=== PATIENT | male | born 1935 | race Caucasian/White ===

== ENCOUNTER 2019-06-03 08:31 | Emergency (ER) | payer OTHER ==
--- NOTE | 2019-06-03 08:39 | EDM.PDOC ---
ED HPI GENERAL MEDICAL PROBLEM - General Stated Complaint: SHOULDER POPPED OUT OF PLACE Time Seen by Provider: 06/03/19 08:34 Source of Information: Reports: Patient History Limitations: Reports: No Limitations - History of Present Illness INITIAL COMMENTS - FREE TEXT/NARRATIVE: Patient is an 83-year-old male while stretching this morning felt his left shoulder pop out of place. Patient has decreased range of motion of the shoulder since. States he had a similar dislocation of the same shoulder 2 weeks ago was reduced in emergency department out of town. For that he has not had similar symptoms. He was stented shoulder immobilizer 2 weeks ago but is not currently wearing one. He denies any other complaints other than severe pain. 2 weeks ago patient injured himself when he fell off a ladder. Onset: Today Location: Reports: Upper Extremity, Left Quality: Reports: Ache Severity: Mild Improves with: Reports: Immobilization Worsens with: Reports: Movement Context: Reports: Activity Associated Symptoms: Reports: No Other Symptoms L shoulder Pain Score (Numeric/FACES): 10 - Related Data Allergies Allergy/AdvReac Type Severity Reaction Status Date / Time No Known Allergies Allergy Verified 06/03/19 08:48 Review of Systems - Review of Systems Review Of Systems: See Below Constitutional: Reports: No Symptoms Mouth/Throat: Reports: No Symptoms Respiratory: Reports: No Symptoms Cardiovascular: Reports: No Symptoms GI/Abdominal: Reports: No Symptoms Genitourinary: Reports: No Symptoms Musculoskeletal: Reports: Shoulder Pain Skin: Reports: No Symptoms Neurological: Reports: No Symptoms Psychiatric: Reports: No Symptoms ED EXAM, GENERAL - Physical Exam Exam: See Below Exam Limited By: No Limitations General Appearance: Alert, No Apparent Distress Head: Atraumatic, Normocephalic Neck: Normal Inspection, Supple, Non-Tender Respiratory/Chest: No Respiratory Distress Cardiovascular: No Edema, No JVD GI/Abdominal: Normal Bowel Sounds, Soft, Non-Tender Back Exam: Normal Inspection Extremities: No Pedal Edema, Arm Pain Neurological: Alert, Oriented, Normal Cognition Psychiatric: Normal Affect Skin Exam: Warm, Dry ED TRAUMA EXTREMITY PROCEDURES - Joint Reduction Site: Shoulder (L) Sedation: Conscious Sedation Pre-Procedure NV Status: Normal Post-Procedure NV Status: Normal Technique: Traction/Counter Traction Number of Attempts: 1 Post-Reduction Imaging: Completely Reduced Joint Reduction Complications: No Progress/Comments: Patient had been 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 Anesthesia provided conscious sedation. Patient received 70 mL's of propofol. Patient was easily reduced as shown on postreduction films. He has been placed in a shoulder immobilizer. He was discussed with Dr. Crowder who is orthopedic provider who was not concerned with the prior Hill-Sachs fracture the patient immobilized for 3 weeks. Course - Vital Signs Last Recorded V/S: Last Vital Signs Temp 36.7 C 06/03/19 08:41 Pulse 61 06/03/19 08:41 Resp 20 06/03/19 08:41 BP 162/110 H 06/03/19 08:41 Pulse Ox 98 06/03/19 08:41 - Orders/Labs/Meds Orders: Active Orders 24 hr Category Date Time Status Shoulder Comp Lt [CR] Stat Exams 06/03/19 09:54 Ordered Sodium Chloride 0.9% [Saline Flush] Med 06/03/19 08:42 Active 10 ml FLUSH ASDIRECTED PRN Sodium Chloride 0.9% [Saline Flush] Med 06/03/19 08:42 Active 2.5 ml FLUSH ASDIRECTED PRN DME for Discharge [COMM] Stat Oth 06/03/19 09:59 Ordered Saline Lock Insert [OM.PC] Stat Oth 06/03/19 08:42 Ordered Medication Orders Sodium Chloride (Saline Flush) 10 ml FLUSH ASDIRECTED PRN PRN Reason: Keep Vein Open Sodium Chloride (Saline Flush) 2.5 ml FLUSH ASDIRECTED PRN PRN Reason: Keep Vein Open Meds: Medications Generic Name Dose Route Start Last Admin Trade Name Freq PRN Reason Stop Dose Admin Sodium Chloride 10 ml 06/03/19 08:42 Saline Flush FLUSH ASDIRECTED PRN Keep Vein Open Sodium Chloride 2.5 ml 06/03/19 08:42 Saline Flush FLUSH ASDIRECTED PRN Keep Vein Open Discontinued Medications Generic Name Dose Route Start Last Admin Trade Name Freq PRN Reason Stop Dose Admin Fentanyl 25 mcg 06/03/19 08:48 06/03/19 08:54 Fentanyl IVPUSH 06/03/19 08:49 Not Given ONETIME ONE Fentanyl Confirm 06/03/19 08:46 06/03/19 08:53 Sublimaze Administered 06/03/19 08:47 Not Given Dose 100 mcg .ROUTE .STK-MED ONE Fentanyl 25 mcg 06/03/19 08:54 06/03/19 08:55 Sublimaze IVPUSH 06/03/19 08:55 25 mcg STAT ONE Administration Fentanyl 25 mcg 06/03/19 09:10 06/03/19 09:24 Sublimaze IVPUSH 06/03/19 09:11 25 mcg NOW STA Administration Fentanyl Confirm 06/03/19 09:42 Sublimaze Administered 06/03/19 09:43 Dose 100 mcg .ROUTE .STK-MED ONE Lidocaine HCl Confirm 06/03/19 09:39 Xylocaine-Mpf 1% Administered 06/03/19 09:40 Dose 5 ml .ROUTE .STK-MED ONE Lorazepam 0.5 mg 06/03/19 08:48 06/03/19 08:51 Ativan IVPUSH 06/03/19 08:49 0.5 mg ONETIME ONE Administration Lorazepam Confirm 06/03/19 08:47 06/03/19 09:00 Ativan Administered 06/03/19 08:48 Not Given Dose 2 mg .ROUTE .STK-MED ONE Propofol Confirm 06/03/19 09:39 Diprivan 20 Ml Administered 06/03/19 09:40 Dose 200 mg .ROUTE .STK-MED ONE Sodium Chloride 2.5 ml 06/03/19 08:40 06/03/19 09:00 Saline Flush FLUSH 06/03/19 08:41 Not Given ONETIME ONE - Re-Assessments/Exams Free Text/Narrative Re-Assessment/Exam: 06/03/19 10:02 Dr. Crowder orthopedic provider had reviewed initial x-rays I was not concerned about patient's prior Hill-Sachs deformity is requested that I reduce the shoulder. Anesthesia is present and provided conscious sedation. Patient was easily reduced without any complications. Post reductions show shoulder is in place. Been placed in shoulder immobilizer. Departure - Departure Time of Disposition: 10:07 Disposition: Home, Self-Care 01 Condition: Good Clinical Impression: Shoulder dislocation, recurrent, Hill Sachs deformity, left - Discharge Information Instructions: Posterior Shoulder Instability Referrals: Geeta MURILLO [Primary Care Provider] - Forms: ED Department Discharge Additional Instructions: The following information is given to patients seen in the emergency department who are being discharged to home. This information is to outline your options for follow-up care. We provide all patients seen in our emergency department with a follow-up referral. The need for follow-up, as well as the timing and circumstances, are variable depending upon the specifics of your emergency department visit. If you don't have a primary care physician on staff, we will provide you with a referral. We always advise you to contact your personal physician following an emergency department visit to inform them of the circumstance of the visit and for follow-up with them and/or the need for any referrals to a consulting specialist. The emergency department will also refer you to a specialist when appropriate. This referral assures that you have the opportunity for follow-up care with a specialist. All of these measure are taken in an effort to provide you with optimal care, which includes your follow-up. Under all circumstances we always encourage you to contact your private physician who remains a resource for coordinating your care. When calling for follow-up care, please make the office aware that this follow-up is from your recent emergency room visit. If for any reason you are refused follow-up, please contact the [facility] Emergency Department at and asked to speak to the emergency department charge nurse. Care Plan Goals: Pain in shoulder immobilizer for the next 3 weeks. Follow-up with orthopedic provider at 3 weeks. Return to ER if worse. Ibuprofen with meals as needed. Ice if swelling the shoulder area. Sepsis Event Note - Focused Exam Vital Signs: Vital Signs Temp Pulse Resp BP Pulse Ox 06/03/19 08:41 36.7 C 61 20 162/110 H 98 Date Exam was Performed: 06/03/19 Time Exam was Performed: 10:00 - My Orders Last 24 Hours: My Active Orders 06/03/19 08:42 Sodium Chloride 0.9% [Saline Flush] 10 ml FLUSH ASDIRECTED PRN Sodium Chloride 0.9% [Saline Flush] 2.5 ml FLUSH ASDIRECTED PRN Saline Lock Insert [OM.PC] Stat 06/03/19 09:54 Shoulder Comp Lt [CR] Stat 06/03/19 09:59 DME for Discharge [COMM] Stat - Assessment/Plan Last 24 Hours: My Active Orders 06/03/19 08:42 Sodium Chloride 0.9% [Saline Flush] 10 ml FLUSH ASDIRECTED PRN Sodium Chloride 0.9% [Saline Flush] 2.5 ml FLUSH ASDIRECTED PRN Saline Lock Insert [OM.PC] Stat 06/03/19 09:54 Shoulder Comp Lt [CR] Stat 06/03/19 09:59 DME for Discharge [COMM] Stat
[2019-06-03] MEDS ORDERED: Sodium Chloride 0.9% 2.5 ML Syringe FLUSH ONE (08:40)
[2019-06-03] MEDS ORDERED: Sodium Chloride 0.9% 10 ML Syringe FLUSH PRN (08:42)
[2019-06-03] MEDS ORDERED: Sodium Chloride 0.9% 2.5 ML Syringe FLUSH PRN (08:42)
[2019-06-03] MEDS ORDERED: LORazepam 2 MG/ML SDV ONE (08:47)
[2019-06-03] MEDS ORDERED: LORazepam 2 MG/ML SDV IVPUSH ONE (08:48)
[2019-06-03] MEDS ORDERED: fentaNYL 50 MCG/ML SDV IVPUSH ONE (08:48)
[2019-06-03] MEDS: fentaNYL 100 MCG/2 ML SDV ONE ×2 (08:51→08:53)
[2019-06-03] MEDS ORDERED: fentaNYL 100 MCG/2 ML SDV IVPUSH ONE (08:54)
[2019-06-03] MEDS ORDERED: fentaNYL 100 MCG/2 ML SDV IVPUSH STA ×2 (09:10→11:42)
--- NOTE | 2019-06-03 09:16 | CR ---
INDICATION: Dislocation. TECHNIQUE: Two views of the left shoulder. FINDINGS: Acute complete anteroinferior left shoulder dislocation. There is a Hill-Sachs fracture deformity along the superior lateral margin of the humeral head. Probable soft tissue swelling. Degenerative change of the AC joint. IMPRESSION: Acute complete anteroinferior left shoulder dislocation. Hill-Sachs deformity superior lateral left humeral head. Dictated by Tremaine Landaverde MD @ Jun 03 2019 9:14AM Signed by Dr. Tremaine Landaverde @ Jun 03 2019 9:16AM
[2019-06-03] MEDS ORDERED: Propofol 200 MG/20 ML SDV ONE (09:39)
[2019-06-03] MEDS ORDERED: fentaNYL 100 MCG/2 ML SDV ONE (09:42)
--- NOTE | 2019-06-03 10:01 | PCM.PREANE ---
Preanesthetic Assessment - Anesthesia/Transfusion/Family Hx Anesthesia History: Prior Anesthesia Without Reaction Family History of Anesthesia Reaction: No Transfusion History: No Prior Transfusion(s) Intubation History: Unknown - Review of Systems General: No Symptoms Pulmonary: No Symptoms Cardiovascular: No Symptoms Gastrointestinal: No Symptoms Neurological: No Symptoms Other: Reports: None - Physical Assessment Vital Signs: Last Vital Signs Temp 98.0 F 06/03/19 08:41 Pulse 61 06/03/19 08:41 Resp 20 06/03/19 08:41 BP 162/110 H 06/03/19 08:41 Pulse Ox 98 06/03/19 08:41 ASA Class: 2E Mental Status: Alert & Oriented x3 Airway Class: Mallampati = 2 Dentition: Reports: Normal Dentition Thyro-Mental Finger Breadths: 3 Mouth Opening Finger Breadths: 3 ROM/Head Extension: Limited/Partial Lungs: Clear to Auscultation, Normal Respiratory Effort Cardiovascular: Regular Rate, Regular Rhythm - Allergies Allergies/Adverse Reactions: Allergies Allergy/AdvReac Type Severity Reaction Status Date / Time No Known Allergies Allergy Verified 06/03/19 08:48 - Acknowledgements Anesthesia Type Planned: MAC Pt an Appropriate Candidate for the Planned Anesthesia: Yes Alternatives and Risks of Anesthesia Discussed w Pt/Guardian: Yes Pt/Guardian Understands and Agrees with Anesthesia Plan: Yes PreAnesthesia Questionnaire HEENT History: Reports: Hard of Hearing Cardiovascular History: Reports: Hypertension Respiratory History: Reports: None Gastrointestinal History: Reports: None Genitourinary History: Reports: None Musculoskeletal History: Reports: Gout, Other (See Below) (History of Spontaneous Left Shoulder dislocation) Neurological History: Reports: None Psychiatric History: Reports: None Endocrine/Metabolic History: Reports: None Hematologic History: Reports: None Immunologic History: Reports: None Oncologic (Cancer) History: Reports: None Dermatologic History: Reports: None - Infectious Disease History Infectious Disease History: Reports: None - CURRENT (IN HOUSE) MEDS Current Meds: Current Medications Sodium Chloride (Saline Flush) 10 ml FLUSH ASDIRECTED PRN PRN Reason: Keep Vein Open Sodium Chloride (Saline Flush) 2.5 ml FLUSH ASDIRECTED PRN PRN Reason: Keep Vein Open Discontinued Medications Fentanyl (Fentanyl) 25 mcg IVPUSH ONETIME ONE Stop: 06/03/19 08:49 Last Admin: 06/03/19 08:54 Dose: Not Given Fentanyl (Sublimaze) Confirm Administered Dose 100 mcg .ROUTE .STK-MED ONE Stop: 06/03/19 08:47 Last Admin: 06/03/19 08:53 Dose: Not Given Fentanyl (Sublimaze) 25 mcg IVPUSH STAT ONE Stop: 06/03/19 08:55 Last Admin: 06/03/19 08:55 Dose: 25 mcg Fentanyl (Sublimaze) 25 mcg IVPUSH NOW STA Stop: 06/03/19 09:11 Last Admin: 06/03/19 09:24 Dose: 25 mcg Fentanyl (Sublimaze) Confirm Administered Dose 100 mcg .ROUTE .STK-MED ONE Stop: 06/03/19 09:43 Lidocaine HCl (Xylocaine-Mpf 1%) Confirm Administered Dose 5 ml .ROUTE .STK-MED ONE Stop: 06/03/19 09:40 Lorazepam (Ativan) 0.5 mg IVPUSH ONETIME ONE Stop: 06/03/19 08:49 Last Admin: 06/03/19 08:51 Dose: 0.5 mg Lorazepam (Ativan) Confirm Administered Dose 2 mg .ROUTE .STK-MED ONE Stop: 06/03/19 08:48 Last Admin: 06/03/19 09:00 Dose: Not Given Propofol (Diprivan 20 Ml) Confirm Administered Dose 200 mg .ROUTE .STK-MED ONE Stop: 06/03/19 09:40 Sodium Chloride (Saline Flush) 2.5 ml FLUSH ONETIME ONE Stop: 06/03/19 08:41 Last Admin: 06/03/19 09:00 Dose: Not Given
--- NOTE | 2019-06-03 10:09 | PCM.SN ---
- Free Text/Narrative Note: Procedure Note Due to urge need to reduce shoulder dislocation and patient has been medicated with ativan and fentantyl; official consent was not obtained from the patient but his son. The patients son was at the bedside and expressed understanding and wishes to proceed at this time. Full monitors were instituted including ECG, EtCO2, SpO2, NIBP, Respiratory alarms. Vitals signs taken Q5mins; see nursing documentation for Vital signs. NS wide open was started and Fentanyl 25mcg IV x once was given. Lidocaine 50mg IVP and Propofol 50mg IVP x1 given initially for closed reduction shoulder dislocation. An Additional Propofol 20mg IVP was given during the procedure. VSS throughout the procedure. Spontaneous respirations maintained throughout the procedure as well. Pt awakened 10 minutes after last propofol administration. No complications were noted. Juan RN is at the bedside; report given to her.
--- NOTE | 2019-06-03 10:11 | PCM.POSTAN ---
POST ANESTHESIA ASSESSMENT - MENTAL STATUS Mental Status: Alert, Oriented Free Text/Narrative:: Some confusion - VITAL SIGNS Vital Signs: Last Vital Signs Temp 98.0 F 06/03/19 08:41 Pulse 61 06/03/19 08:41 Resp 20 06/03/19 08:41 BP 162/110 H 06/03/19 08:41 Pulse Ox 98 06/03/19 08:41 - RESPIRATORY Respiratory Status: Respiratory Rate WNL, Airway Patent, O2 Saturation Stable, Supplemental Oxygen (2 LPM via NC) - CARDIOVASCULAR CV Status: Pulse Rate WNL, Blood Pressure Stable - GASTROINTESTINAL GI Status: No Symptoms - PAIN Pain Score: 0 - POST OP HYDRATION Hydration Status: Adequate & Stable
--- NOTE | 2019-06-03 10:15 | PCM48HPAN ---
Post Anesthesia Note - EVALUATION WITHIN 48HRS OF ANESTHETIC Vital Signs in Normal Range: Yes Patient Participated in Evaluation: Yes Respiratory Function Stable: Yes Airway Patent: Yes Cardiovascular Function Stable: Yes Hydration Status Stable: Yes Pain Control Satisfactory: Yes Nausea and Vomiting Control Satisfactory: Yes Mental Status Recovered: Yes Vital Signs: Last Vital Signs Temp 98.0 F 06/03/19 08:41 Pulse 61 06/03/19 08:41 Resp 20 06/03/19 08:41 BP 162/110 H 06/03/19 08:41 Pulse Ox 98 06/03/19 08:41 - COMMENTS/OBSERVATIONS Free Text/Narrative:: Current Vital Signs HR 60s RR 16 SpO2 - 100 on 2 LPM via NC FAUSTINO - 148/62
--- NOTE | 2019-06-03 10:33 | CR ---
INDICATION: Post shoulder reduction. COMPARISON: Film done earlier same day. FINDINGS: Two views of the left shoulder were obtained. The previously described dislocation has been reduced. There is no acute fracture seen. Dictated by Adrián Gonzalez MD @ 06/03/2019 10:31:38 AM Dictated by: Adrián Gonzalez MD @ 06/03/2019 10:31:47 (Electronically Signed)
[2019-06-03] MEDS ORDERED: Propofol 200 MG/20 ML SDV IVPUSH ONE (11:42)
== END 2019-06-03 10:40 | disposition home or self-care (01) ==
LOC: MW.ED 08:31
DX: M24.412 Recurrent dislocation, left shoulder (principal)
CPT/HCPCS: 23650; 73030; 96374; 96375; 96376; 99283; J2001; J2060; J2704; J3010; 01620; 23655